=== PATIENT | female | born 1965 | race Caucasian/White ===

== ENCOUNTER 2025-01-04 08:47 | Emergency (ER) | payer OTHER ==
[~2025-01-04] VITALS: Ht 160 cm; Wt 59.1 kg
[2025-01-04 09:07] VITALS: BP 115/79; PULSE 86; RESP 18; TEMP 97.9; O2SAT 99
[2025-01-04] MEDS: OxyCODONE HCL/ACETAMINOPHEN 5-325 MG TABLET PO ONE (10:12)
[2025-01-04] MEDS: IBUPROFEN 600 MG TABLET PO ONE (10:15)
[2025-01-04] MEDS: PENICILLIN V POTASSIUM 500 MG TABLET PO ONE (10:16)
[2025-01-04] MEDS ORDERED: PENI500T2 PO (17:16)
[2025-01-04] MEDS ORDERED: IBUP-1554 PO (17:16)
[2025-01-04] MEDS ORDERED: ACET-2080 PO (17:16)
== END 2025-01-04 10:27 | disposition home or self-care (01) ==
LOC: EMS 08:47
DX: K08.89 Other specified disorders of teeth and supporting structures (principal); F32.A Depression, unspecified
CPT/HCPCS: 99284; Z7502; Z7610